=== PATIENT | female | born 1945 | race Two or more races ===

== ENCOUNTER 2022-06-24 07:45 | Inpatient (IN) | payer OTHER ==
[~2022-06-24] VITALS: Ht 154.9 cm; Wt 57.6 kg
[2022-06-24] MEDS ORDERED: ROSUVAST PO (12:19)
[2022-06-24] MEDS ORDERED: LOSART PO (12:20)
[2022-06-24] MEDS ORDERED: COMPLETE OMEGA1 EACH PO (12:21)
[2022-06-24] MEDS ORDERED: PRILOSEC OTC20 MG PO (12:22)
[2022-06-24] MEDS ORDERED: [UNRECOGNIZED DRUG - OTHER] PO (12:23)
[2022-06-24] MEDS ORDERED: CALCIUM PO (12:23)
[2022-06-24] MEDS ORDERED: MAGNESIUM250 M2 PO (12:24)
[2022-06-24] MEDS ORDERED: VITAMIN D3 PO (12:24)
[2022-06-24] MEDS ORDERED: PROBIOTIC250 MG PO (12:24)
[2022-06-24] MEDS ORDERED: POTAS PO (12:25)
[2022-07-02] MEDS ORDERED: ROSUVASTATIN CA20 MG (07:58)
[2022-07-02] MEDS ORDERED: OMEGA-3 ACID ETH1 GM (07:58)
[2022-07-02] MEDS ORDERED: SULINDAC200 MG (07:58)
[2022-07-02] MEDS ORDERED: GLYXAMBI 25 MG1 EACH (07:58)
[2022-07-02] MEDS ORDERED: LOSARTAN-HCTZ1 EACH (07:58)
[2022-07-02] MEDS ORDERED: RALOXIFENE HCL60 MG (07:58)
[2022-07-02] MEDS ORDERED: TIZANIDINE HCL4 M1 (07:58)
[2022-07-02] MEDS ORDERED: OFLOXACIN5 ML (07:59)
[2022-07-02] MEDS ORDERED: DIFLUPREDNATE5 ML (07:59)
[2022-07-02] MEDS ORDERED: POLYMYXIN B-TMP10 ML (07:59)
[2022-07-02] MEDS ORDERED: INTESTINEX680 M1 (07:59)
[2022-07-02] MEDS ORDERED: CALCIUM500 M1 (08:01)
[2022-07-02] MEDS ORDERED: VITAMIN D310 MC1 (08:02)
[2022-07-02] MEDS ORDERED: POTASSIUM600 MG (08:02)
[2022-07-04] MEDS ORDERED: PROTONIX40 MG PO (09:07)
[2022-07-04] MEDS ORDERED: HYOSCYAMINE0.125 M1 SL (09:07)
[2022-07-04] MEDS ORDERED: TRAM1TAB98 PO (09:08)
[2022-07-04] MEDS ORDERED: INTESTINEX680 M1 PO (09:08)
== END 2022-07-04 10:07 | disposition home or self-care (01) | DRG 331 ==
LOC: O/R 07-01 08:41 → SURH 07-01 08:45 → SURG 07-01 16:01
PROVIDERS: ADMIT Surgery; ATTEND Surgery
PROC: 0DBP4ZZ Excision of Rectum, Percutaneous Endoscopic Approach (ICD-10-PCS; 2022-07-01)
PROC: 0DJD8ZZ Inspection of Lower Intestinal Tract, Via Natural or Artificial Opening Endoscopic (ICD-10-PCS; 2022-07-01)
PROC: 0DTN4ZZ Resection of Sigmoid Colon, Percutaneous Endoscopic Approach (ICD-10-PCS; principal; 2022-07-01 13:00)
DX: K57.30 Diverticulosis of large intestine without perforation or abscess without bleeding (principal); R10.32 Left lower quadrant pain; N73.6 Female pelvic peritoneal adhesions (postinfective); N99.4 Postprocedural pelvic peritoneal adhesions; I11.9 Hypertensive heart disease without heart failure; E11.9 Type 2 diabetes mellitus without complications; Z20.822 Contact with and (suspected) exposure to COVID-19